=== PATIENT | female | born 1965 | race Caucasian/White ===

== ENCOUNTER 2017-02-24 15:13 | Emergency (ER) | payer MEDICAID, OTHER ==
--- NOTE | 2017-02-24 16:37 | Emergency Department Record ---
History of Present Illness - General Chief complaint: Abscess Stated complaint: OPEN SORE ON ABDOMEN Time Seen by Provider: 02/24/17 16:36 Source: Patient, RN notes reviewed Mode of Arrival: Ambulatory - History of Present Illness Initial comments: ulcer on the abd and it may have started out as an abscess and not fluctuat. primary is Dr. Nath Onset/Timin -: Week(s) Hx Tetanus Toxoid Vaccination: No Consistency: Constant Improves with: None Worsens with: None Context: None Associated symptoms: Denies other symptoms Treatments Prior to Arrival: None - Related Data Home Medications Medication Instructions Recorded Confirmed Last Taken Aclidinium [place] [Tudorza 400 mcg IH DAILY 02/24/17 02/24/17 Unknown Pressair] Aspirin [Ecotrin] 81 mg PO DAILY 02/24/17 02/24/17 Unknown Budesonide/Formoterol Fumarate 10.2 gm IH DAILY 02/24/17 02/24/17 Unknown [Symbicort 160-4.5 Mcg Inhaler] Empagliflozin/Metformin HCl 1 each PO DAILY 02/24/17 02/24/17 Unknown [Synjardy 5-1,000 mg Tablet] Previous Rx's Medication Instructions Recorded Cephalexin [Keflex] 500 mg PO QID #40 cap 02/24/17 Sulfamethoxazole/Trimethoprim 1 each PO BID #20 tablet 02/24/17 [Bactrim 400-80 mg Tablet] Allergies Allergy/AdvReac Type Severity Reaction Status Date / Time codeine Allergy DIFFICULTY Verified 02/19/16 15:17 BREATHING Travel Screening - Travel/Exposure Within Last 30 Days Have you traveled within the last 30 days?: No Review of Systems Reviewed: No additional complaints except as noted below Constitutional: Reports: As per HPI. Denies: Chills, Fever, Malaise, Night sweats, Weakness, Weight change Eyes: Reports: As per HPI. Denies: Eye discharge, Eye pain, Photophobia, Vision change ENT: Reports: As per HPI. Denies: Congestion, Dental pain, Ear pain, Epistaxis , Hearing loss, Throat pain Respiratory: Reports: As per HPI. Denies: Cough, Dyspnea, Hemoptysis, Stridor, Wheezes Cardiovascular: Reports: As per HPI. Denies: Arrhythmia, Chest pain, Dyspnea on exertion, Edema, Murmurs, Orthopnea, Palpitations, Paroxysmal nocturnal dyspnea, Rheumatic Fever, Syncope Endocrine: Reports: As per HPI. Denies: Fatigue, Heat or cold intolerance, Polydipsia, Polyuria Gastrointestinal: Reports: As per HPI. Denies: Abdominal pain, Constipation, Diarrhea, Hematemesis, Hematochezia, Melena, Nausea, Vomiting Genitourinary: Reports: As per HPI. Denies: Abnormal menses, Discharge, Dyspareunia, Dysuria, Frequency, Hematuria, Incontinence, Retention, Urgency Musculoskeletal: Reports: As per HPI. Denies: Arthralgia, Back pain, Gout, Joint swelling, Myalgia, Neck pain Skin: Reports: As per HPI. Denies: Bruising, Change in color, Change in hair/ nails, Lesions, Pruritus, Rash Neurological: Reports: As per HPI. Denies: Abnormal gait, Confusion, Headache, Numbness, Paresthesias, Seizure, Tingling, Tremors, Vertigo, Weakness Psychiatric: Reports: As per HPI. Denies: Anxiety, Auditory hallucinations, Depression, Homicidal thoughts, Suicidal thoughts, Visual hallucinations Hematological/Lymphatic: Reports: As per HPI. Denies: Anemia, Blood Clots, Easy bleeding, Easy bruising, Swollen glands Past Medical History - SOCIAL HISTORY Smoking Status: Current every day smoker - RESPIRATORY Hx Respiratory Disorders: Yes Hx Asthma: Yes Hx COPD: Yes Hx Sleep Apnea: Yes Hx of CPAP: Yes (does not use all the time) Comment:: Has a spot on her lung, has not grown in 6 weeks - CARDIOVASCULAR Hx Cardio Disorders: Yes Hx Cardiac Cath: Yes Hx Hypertension: Yes Comment:: d/t breathing - NEURO Hx Neuro Disorders: Yes Hx Dizziness: Yes Hx TIA: Yes (2012) - GI Hx GI Disorders: Yes Hx Reflux: Yes Hx Nausea/Vomiting: Yes Hx Wt Loss/Wt Gain: Yes (6 #'s in one month) - Hx Genitourinary Disorders: No Comment:: stress incontience - ENDOCRINE Hx Endocrine Disorders: Yes Hx Diabetes: Yes - MUSCULOSKELETAL Hx Musculoskeletal Disorders: Yes Hx Arthritis: Yes (legs and back) - PSYCH Hx Psych Problems: Yes Hx Anxiety: Yes Hx Depression: Yes (bipolar) Comment:: ADHD - HEMATOLOGY/ONCOLOGY Hx Hematology/Oncology Disorders: Yes Family Medical History Any Significant Family History?: Yes Hx Cancer: Mother *Cancer Comment: BREAST Hx Depression: Mother Hx Diabetes: Mother Hx Heart Disease: Father Hx Resp Disorders: Mother Physical Exam - General General Appearance: Alert, Oriented x3, Cooperative, No acute distress - Head Head exam: Normal inspection - Eye Eye exam: Normal appearance, PERRL Pupils: Normal accommodation - ENT ENT exam: Normal exam, Mucous membranes moist, Normal external ear exam, Normal orophraynx, TM's normal bilaterally Ear exam: Normal external inspection. negative: External canal tenderness Nasal Exam: Normal inspection. negative: Discharge, Sinus tenderness Mouth exam: Normal external inspection, Tongue normal Teeth exam: Normal inspection. negative: Dental caries Throat exam: Normal inspection. negative: Tonsillar erythema, Tonsillar exudate - Neck Neck exam: Normal inspection, Full ROM. negative: Tenderness - Respiratory Respiratory exam: Normal lung sounds bilaterally. negative: Respiratory distress - Cardiovascular Cardiovascular Exam: Regular rate, Normal rhythm, Normal heart sounds - GI/Abdominal GI/Abdominal exam: Soft, Normal bowel sounds. negative: Tenderness - Rectal Rectal exam: Deferred - exam: Deferred - Extremities Extremities exam: Normal inspection, Full ROM, Normal capillary refill. negative: Tenderness - Back Back exam: Reports: Normal inspection, Full ROM. Denies: Muscle spasm, Rash noted, Tenderness - Neurological Neurological exam: Alert, Normal gait, Oriented X3, Reflexes normal - Psychiatric Psychiatric exam: Normal affect, Normal mood - Skin Skin exam: Other (ulcer in the right lower quad of abd about 2 inches by one inch ) Course Vital Signs 02/24/17 16:21 Temperature 99.3 F Pulse Rate 84 Respiratory 20 Rate Blood Pressure 132/99 Pulse Ox 95 Disposition Clinical Impression: Cellulitis Ulcer of skin Qualifiers: Non-pressure ulcer stage: limited to breakdown of skin Qualified Code(s): L98.491 - Non-pressure chronic ulcer of skin of other sites limited to breakdown of skin Disposition: Home, Self-Care Condition: (1) Good Instructions: Cellulitis (ED) Additional Instructions: follow up with Dr. Nath and may need biopsy and surgical remove wash twice a day bactrim DS one BID and keflex 500 mg four times a day Prescriptions: Cephalexin [Keflex] 500 mg PO QID #40 cap Sulfamethoxazole/Trimethoprim [Bactrim 400-80 mg Tablet] 1 each PO BID #20 tablet Forms: Patient Portal Access Time of Disposition: 17:39 Quality - Quality Measures Quality Measures: N/A - Blood Pressure Screening Does Patient Have Any of the Following: No Blood Pressure Classification: Hypertensive Reading Systolic Measurement: 132 Diastolic Measurement: 99 Screening for High Blood Pressure: < First Hypertensive BP, F/U Documented > [ [id number]] First Hypertensive Follow-up Interventions: Referral to alternative/primary care provider.
[2017-02-24] MEDS ORDERED: TMP/SMZ 160MG/800MG TAB PO ONE (17:42)
[2017-02-24] MEDS ORDERED: CEPHALEXIN 500 MG CAPSULE PO STA (17:42)
== END 2017-02-24 17:56 | disposition home or self-care (01) ==
LOC: ER 15:13
DX: S86.911A Strain of unspecified muscle(s) and tendon(s) at lower leg level, right leg, initial encounter (principal); W50.2XXA Accidental twist by another person, initial encounter; Y93.19 Activity, other involving water and watercraft; Y92.828 Other wilderness area as the place of occurrence of the external cause
CPT/HCPCS: 29505; 99283 ×2; J3490

== ENCOUNTER 2017-10-25 17:25 | Emergency (ER) | payer OTHER ==
[2017-10-25] MEDS ORDERED: METHYLPREDNISOLONE PF 125MG/VIAL IVP ONE (17:50)
[2017-10-25] MEDS ORDERED: ALBUTEROL SULFATE (0.083%) 2.5 MG/3 ML NEB INH ONE (17:50)
[2017-10-25] MEDS ORDERED: IPRATROPIUM/ALBUTEROL (0.5MG/3MG) NEB INH ONE (17:50)
[2017-10-25 18:05] LABS: HEMATOCRIT 39.7 % (35.0-47.0); HEMOGLOBIN 12.9 gm/dl (11.6-16.0); MEAN CELL VOLUME 86.3 fl (81-97); MEAN CORPUSCULAR HGB CONC 32.5 g/dl (32-36); MEAN PLATELET VOLUME 9.6 fl (7.4-10.4); PLATELET COUNT 443 K/uL (130-400); WHITE BLOOD COUNT W/O DIFF 18.4 K/uL (4.2-12.2)
[2017-10-25 18:08] LABS: ARTERIAL BLD GAS O2 SATURATION 95.9 % (95-98); ARTERIAL BLOOD GAS BASE EXCESS 2.7 mmol/L (-2 - 3); ARTERIAL BLOOD GAS PCO2 42.2 mmHg (35-48); ARTERIAL BLOOD GAS pH 7.42 (7.35-7.45); CARBOXYHEMOGLOBIN 3.4 % (0-1.5); METHEMOGLOBIN 0.4 % (0.0-1.5); O2 HEMOGLOBIN 92.3 % vol (94-99); TOTAL HEMOGLOBIN 11.8 g/dl (11.6-16)
[2017-10-25 18:09] LABS: ALLEN TEST PASS
[2017-10-25 18:20] LABS: BLOOD UREA NITROGEN 14 mg/dL (6-20); CREATININE 0.7 mg/dL (0.5-0.9); EST GLOMERULAR FILTRATION RATE > 60 mL/min
[2017-10-25 18:23] LABS: GLUCOSE,RANDOM 168 mg/dL (74-109)
--- NOTE | 2017-10-25 18:33 | Emergency Department Record ---
History of Present Illness - General Chief Complaint: Difficulty Breathing Stated Complaint: SHORTNESS OF BREATH Time Seen by Provider: 10/25/17 17:44 Source: Patient Mode of Arrival: Ambulatory Limitations: No limitations - History of Present Illness Initial Comments: pt c/o of sob that has been getting worse over the last few days. she has a hx of copd for 9 yrs. she still smokes. she has a prod white cough. she has inhalers that she has been using. she saw her primary earlier this week and was started on abx. he told her that the cxr showed that her "lungs are a mess " MD Complaint: Shortness of breath Onset/Timin Severity: Moderate Severity scale (1-10): 8 Quality: Aching Improves With: Nothing Worsens With: Lying flat Known History Of: Asthma, COPD Context: Recent illness Associated Symptoms: Sputum production Treatments Prior to Arrival: Bronchodilator - Related Data Home Medications Medication Instructions Recorded Confirmed Last Taken Metformin HCl [Metformin HCl ER] 1,000 mg PO DAILY 10/25/17 10/25/17 1 Day Ago ~10/24/17 Allergies Allergy/AdvReac Type Severity Reaction Status Date / Time acetaminophen [From Percocet] Allergy CHEST PAIN Verified 10/25/17 17:52 codeine Allergy DIFFICULTY Verified 10/25/17 17:52 BREATHING oxycodone [From Percocet] Allergy CHEST PAIN Verified 10/25/17 17:52 Travel Screening - Travel/Exposure Within Last 30 Days Have you traveled within the last 30 days?: No - Travel/Exposure Within Last Year Have you traveled outside the [place] in the last year?: No - Additonal Travel Details Have you been exposed to anyone with a communicable illness?: No - Travel Symptoms Symptom Screening: None Review of Systems Reviewed: No additional complaints except as noted below Constitutional: Reports: As per HPI. Denies: Chills, Fever, Malaise, Night sweats, Weakness, Weight change Eyes: Reports: As per HPI. Denies: Eye discharge, Eye pain, Photophobia, Vision change ENT: Reports: As per HPI. Denies: Congestion, Dental pain, Ear pain, Epistaxis , Hearing loss, Throat pain Respiratory: Reports: As per HPI. Denies: Cough, Dyspnea, Hemoptysis, Stridor, Wheezes Cardiovascular: Reports: As per HPI. Denies: Arrhythmia, Chest pain, Dyspnea on exertion, Edema, Murmurs, Orthopnea, Palpitations, Paroxysmal nocturnal dyspnea, Rheumatic Fever, Syncope Endocrine: Reports: As per HPI. Denies: Fatigue, Heat or cold intolerance, Polydipsia, Polyuria Gastrointestinal: Reports: As per HPI. Denies: Abdominal pain, Constipation, Diarrhea, Hematemesis, Hematochezia, Melena, Nausea, Vomiting Genitourinary: Reports: As per HPI. Denies: Abnormal menses, Discharge, Dyspareunia, Dysuria, Frequency, Hematuria, Incontinence, Retention, Urgency Musculoskeletal: Reports: As per HPI. Denies: Arthralgia, Back pain, Gout, Joint swelling, Myalgia, Neck pain Skin: Reports: As per HPI. Denies: Bruising, Change in color, Change in hair/ nails, Lesions, Pruritus, Rash Neurological: Reports: As per HPI. Denies: Abnormal gait, Confusion, Headache, Numbness, Paresthesias, Seizure, Tingling, Tremors, Vertigo, Weakness Psychiatric: Reports: As per HPI. Denies: Anxiety, Auditory hallucinations, Depression, Homicidal thoughts, Suicidal thoughts, Visual hallucinations Hematological/Lymphatic: Reports: As per HPI. Denies: Anemia, Blood Clots, Easy bleeding, Easy bruising, Swollen glands Past Medical History - SOCIAL HISTORY Smoking Status: Current every day smoker Alcohol Use: None Drug Use: Rare, Occasional Drug Use Detail:: Marijuana - RESPIRATORY Hx Respiratory Disorders: Yes Hx Asthma: Yes Hx COPD: Yes Hx Sleep Apnea: Yes Hx of CPAP: Yes (does not use all the time) Comment:: Has a spot on her lung, has not grown in 6 weeks - CARDIOVASCULAR Hx Cardio Disorders: Yes Hx Cardiac Cath: Yes Hx Hypertension: Yes Comment:: d/t breathing - NEURO Hx Neuro Disorders: Yes Hx Dizziness: Yes Hx TIA: Yes (2012) - GI Hx GI Disorders: Yes Hx Reflux: Yes Hx Nausea/Vomiting: Yes Hx Wt Loss/Wt Gain: Yes (6 #'s in one month) - Hx Genitourinary Disorders: No Comment:: stress incontience - ENDOCRINE Hx Endocrine Disorders: Yes Hx Diabetes: Yes - MUSCULOSKELETAL Hx Musculoskeletal Disorders: Yes Hx Arthritis: Yes (legs and back) - PSYCH Hx Psych Problems: Yes Hx Anxiety: Yes Hx Depression: Yes (bipolar) Comment:: ADHD - HEMATOLOGY/ONCOLOGY Hx Hematology/Oncology Disorders: Yes Family Medical History Any Significant Family History?: Yes Hx Cancer: Mother *Cancer Comment: BREAST Hx Depression: Mother Hx Diabetes: Mother Hx Heart Disease: Father Hx Resp Disorders: Mother Physical Exam - General General Appearance: Alert, Oriented x3, Cooperative, Severe distress - Head Head exam: Normal inspection - Eye Eye exam: Normal appearance, PERRL, EOMI Pupils: Normal accommodation - ENT ENT exam: Normal exam, Mucous membranes moist, Normal external ear exam, Normal orophraynx Ear exam: Normal external inspection. negative: External canal tenderness Nasal Exam: Normal inspection. negative: Discharge, Sinus tenderness Mouth exam: Normal external inspection, Tongue normal Teeth exam: Normal inspection. negative: Dental caries Throat exam: Normal inspection. negative: Tonsillar erythema, Tonsillar exudate - Neck Neck exam: Normal inspection, Full ROM. negative: Tenderness - Respiratory Respiratory exam: Accessory muscle use, Decreased breath sounds, Rales, Respiratory distress, Rhonchi, Wheezes - Cardiovascular Cardiovascular Exam: Regular rate, Normal rhythm, Normal heart sounds - GI/Abdominal GI/Abdominal exam: Soft, Normal bowel sounds. negative: Tenderness - Rectal Rectal exam: Deferred - exam: Deferred - Extremities Extremities exam: Normal inspection, Full ROM, Normal capillary refill. negative: Tenderness - Back Back exam: Reports: Normal inspection, Full ROM. Denies: Muscle spasm, Rash noted, Tenderness - Neurological Neurological exam: Alert, CN II-XII intact, Normal gait, Oriented X3 - Psychiatric Psychiatric exam: Normal affect, Normal mood - Skin Skin exam: Dry, Intact, Normal color, Warm Course Vital Signs 10/25/17 10/25/17 10/25/17 17:38 17:45 18:05 Temperature 98.6 F Pulse Rate 98 H 93 H 98 H Pulse Rate [ 88 Gsa Coordinator ] Respiratory 22 28 H 28 H Rate Blood Pressure 149/79 Blood Pressure [Right Arm] Pulse Ox 58 L 89 L 90 L 10/25/17 18:15 Temperature Pulse Rate Pulse Rate [ 86 Gsa Coordinator ] Respiratory 24 Rate Blood Pressure Blood Pressure 114/80 [Right Arm] Pulse Ox 91 L - Reevaluation(s) Reevaluation #1: 10/25/17 19:44 pt is doing better and has more air moving. her sats are in low 90s on 4ltrs Medical Decision Making - Lab Data Result diagrams: 10/25/17 18:02 10/25/17 18:02 Lab Results 10/25/17 10/25/17 10/25/17 Range/Units 18:02 18:02 18:02 WBC 18.4 H (4.2-12.2) K/uL RBC 4.60 (3.80-5.40) M/uL Hgb 12.9 (11.6-16.0) gm/dl Hct 39.7 (35.0-47.0) % MCV 86.3 (81-97) fl MCH 28.0 (27-33) pg MCHC 32.5 (32-36) g/dl RDW 18.0 H (11.5-14.5) % Plt Count 443 H (130-400) K/uL MPV 9.6 (7.4-10.4) fl Neutrophils % 78.0 (47-80) % Band Neutrophils % 0.0 (0-5) % Eosinophils % Not Reportable Basophils % Not Reportable Lymphocytes 17.0 (16-45) % Monocytes 5.0 (0-9) % Basophils 0.0 (0-6) % Eosinophil Count 0.0 (0-6) % D-Dimer 0.90 H (0-0.59) mg/L FEU Puncture Site Right wrist pCO2 42.2 (35-48) mmHg pO2 77.0 L (83-108) mmHg HCO3 27.0 H (18-23) mmol/L Oxyhemoglobin 92.3 L (94-99) % vol ABG pH 7.42 (7.35-7.45) ABG O2 Saturation 95.9 (95-98) % ABG Base Excess 2.7 (-2 - 3) mmol/L Ruddy Test Pass Carboxyhemoglobin 3.4 H (0-1.5) % Methemoglobin 0.4 (0.0-1.5) % Total Hemoglobin 11.8 (11.6-16) g/dl Actual Respiration Rate 28.0 H (10-18) /MIN FiO2 10.0 L (21-21) % Sodium (136-145) mmol/L Potassium (3.4-4.5) mmol/L Chloride (98-107) mmol/L Carbon Dioxide (22-29) mmol/L Anion Gap (7-16) BUN (6-20) mg/dL Creatinine (0.5-0.9) mg/dL Estimated GFR mL/min Random Glucose (74-109) mg/dL Calcium (8.6-10.0) mg/dL 10/25/17 Range/Units 18:02 WBC (4.2-12.2) K/uL RBC (3.80-5.40) M/uL Hgb (11.6-16.0) gm/dl Hct (35.0-47.0) % MCV (81-97) fl MCH (27-33) pg MCHC (32-36) g/dl RDW (11.5-14.5) % Plt Count (130-400) K/uL MPV (7.4-10.4) fl Neutrophils % (47-80) % Band Neutrophils % (0-5) % Eosinophils % Basophils % Lymphocytes (16-45) % Monocytes (0-9) % Basophils (0-6) % Eosinophil Count (0-6) % D-Dimer (0-0.59) mg/L FEU Puncture Site pCO2 (35-48) mmHg pO2 (83-108) mmHg HCO3 (18-23) mmol/L Oxyhemoglobin (94-99) % vol ABG pH (7.35-7.45) ABG O2 Saturation (95-98) % ABG Base Excess (-2 - 3) mmol/L Ruddy Test Carboxyhemoglobin (0-1.5) % Methemoglobin (0.0-1.5) % Total Hemoglobin (11.6-16) g/dl Actual Respiration Rate (10-18) /MIN FiO2 (21-21) % Sodium 141 (136-145) mmol/L Potassium 3.6 (3.4-4.5) mmol/L Chloride 96 L (98-107) mmol/L Carbon Dioxide 28.0 (22-29) mmol/L Anion Gap 17.0 H (7-16) BUN 14 (6-20) mg/dL Creatinine 0.7 (0.5-0.9) mg/dL Estimated GFR > 60 mL/min Random Glucose 168 H (74-109) mg/dL Calcium 9.0 (8.6-10.0) mg/dL Disposition Disposition: Transfer Clinical Impression: Hypoxia Pneumonia Qualifiers: Pneumonia type: due to unspecified organism Laterality: bilateral Lung location : unspecified part of lung Qualified Code(s): J18.9 - Pneumonia, unspecified organism COPD (chronic obstructive pulmonary disease) Qualifiers: COPD type: unspecified COPD Qualified Code(s): J44.9 - Chronic obstructive pulmonary disease, unspecified Disposition: Acute Care Hospital Transfer Transfer To: [facility] Reason For Transfer: needs higher level of care and pulmnologist Accepting Physician: dr currie Time Discussed w/Accepting Physician: 19:46 Condition: (1) Good Forms: Patient Portal Access Quality - Quality Measures Quality Measures: N/A - Blood Pressure Screening Does Patient Have Any of the Following: Active Dx of HTN Blood Pressure Classification: Hypertensive Reading Systolic Measurement: 149 Diastolic Measurement: 79 Screening for High Blood Pressure: Patient Exclusion, Hx of HTN [G9744]
[2017-10-25] MEDS ORDERED: CEFTRIAXONE SODIUM 1 GM in 0.9 % SODIUM CHLORIDE 100ML 100 ML IVPB ONE (18:39)
--- NOTE | 2017-10-26 12:34 | RADIOLOGY REPORT ---
DATE: 10/25/2017. EXAM: CHEST, TWO VIEWS. HISTORY: Dyspnea and hypoxia. COMPARISON: 10/22/2017. TECHNIQUE: Two views of the chest were obtained. FINDINGS: Telemetry leads overlie the chest. Cardiomediastinal silhouette is enlarged though stable. Interval increased patchy airspace disease throughout the lungs with mass-like airspace disease in the right perihilar region. No conclusive pleural effusion. IMPRESSION: 1. INTERVAL INCREASED PATCHY AIRSPACE DISEASE THROUGHOUT THE LUNGS WITH MASS- LIKE AIRSPACE DISEASE IN THE RIGHT PERIHILAR REGION. RECOMMEND FOLLOW-UP RADIOGRAPH AFTER AN APPROPRIATE CLINICAL INTERVAL TO EXCLUDE OTHER PROCESSES INCLUDING MASS. 2. STABLE CARDIOMEGALY. JOB NUMBER: [id number] MTDD
--- NOTE | 2017-10-26 12:56 | CT ANGIOGRAM REPORT ---
DATE: 10/25/2017. EXAM: CT ANGIOGRAM OF THE CHEST. HISTORY: Dyspnea. Elevated white blood cells. Elevated D-dimer. COMPARISON: 12/24/2015. TECHNIQUE: Routine CT angiography images of the chest obtained following intravenous administration of contrast. The amount and type of contrast can be found in the medical record. The 3D/MIP images were obtained for further assessment. FINDINGS: The heart is not enlarged. No pericardial effusion. The aorta enhances normally with contrast. No central filling defects in the pulmonary arteries to suggest acute pulmonary embolus. No mediastinal lymph node enlargement. Enlarged right hilar lymph node measuring approximately 3.3 x 2.1 cm. Lung parenchyma demonstrates ground glass opacities throughout all lobes which could relate to infectious infiltrate edema or hemorrhage. Somewhat more dense airspace disease is also interspersed elsewhere. No pleural effusion. The visualized upper abdomen demonstrates hepatic steatosis. Hepatomegaly. No acute osseous abnormality. IMPRESSION: 1. NO PULMONARY EMBOLUS. 2. GROUND GLASS AIRSPACE DISEASE THROUGHOUT ALL LOBES OF THE LUNG WHICH COULD RELATE TO INFECTIOUS INFILTRATES, EDEMA, OR HEMORRHAGE. 3. ENLARGED RIGHT HILAR LYMPH NODE MEASURING 3.3 X 2.1 CM. THIS COULD RELATE TO REACTIVE CHANGES, THOUGH NEOPLASM IS NOT EXCLUDED. AT A MINIMUM, FOLLOW-UP IMAGING WOULD BE RECOMMENDED AFTER AN APPROPRIATE CLINICAL INTERVAL. 4. HEPATOMEGALY AND HEPATIC STEATOSIS. JOB NUMBER: [id number] MTDD
== END 2017-10-25 20:54 | disposition short-term general hospital (02) ==
LOC: ER 17:25
DX: R09.02 Hypoxemia (principal); J18.9 Pneumonia, unspecified organism; J44.9 Chronic obstructive pulmonary disease, unspecified; D72.829 Elevated white blood cell count, unspecified; R79.89 Other specified abnormal findings of blood chemistry; E11.9 Type 2 diabetes mellitus without complications; R51 Headache; I10 Essential (primary) hypertension; F17.210 Nicotine dependence, cigarettes, uncomplicated; Z79.84 Long term (current) use of oral hypoglycemic drugs
CPT/HCPCS: 99285 ×2; 96365; 96366; 96375; 82375; 80048; 82803; 84484; 85379; 85027; 83880; 71045; 71275; 94640; 36600; 93005; 93010; Q9967; J2930; J7613

== ENCOUNTER 2018-08-02 16:04 | Emergency (ER) | payer OTHER ==
--- NOTE | 2018-08-02 17:04 | Emergency Department Record ---
History of Present Illness - General Chief complaint: Abscess Stated complaint: SORE UNDER L ARM PIT Time Seen by Provider: 08/02/18 16:32 Source: Patient, RN notes reviewed Mode of Arrival: Ambulatory - History of Present Illness Initial comments: left axillary infection which has been present for couple months and much worse in the last 3 days. MD complaint: Abscess/boil Onset/Timin -: Month(s) Hx Tetanus Toxoid Vaccination: No Location: LUE Severity: Moderate Severity scale (1-10): 8 Quality: Other Consistency: Constant Improves with: None Worsens with: None Associated symptoms: Denies other symptoms Treatments Prior to Arrival: None - Related Data Home Medications Medication Instructions Recorded Confirmed Last Taken Cariprazine HCl [Vraylar] 3 mg PO DAILY 08/02/18 08/02/18 08/02/18 Omeprazole [Prilosec] 20 mg PO DAILY 08/02/18 08/02/18 08/02/18 Previous Rx's Medication Instructions Recorded Cephalexin [Keflex] 500 mg PO QID #40 cap 08/02/18 Sulfamethoxazole/Trimethoprim 1 each PO BID #20 tablet 08/02/18 [Bactrim Ds Tablet] Allergies Allergy/AdvReac Type Severity Reaction Status Date / Time codeine Allergy DIFFICULTY Verified 08/02/18 16:09 BREATHING Travel Screening - Travel/Exposure Within Last 30 Days Have you traveled within the last 30 days?: No - Travel/Exposure Within Last Year Have you traveled outside the [place] in the last year?: No - Additonal Travel Details Have you been exposed to anyone with a communicable illness?: No - Travel Symptoms Symptom Screening: None Review of Systems Reviewed: No additional complaints except as noted below Constitutional: Reports: As per HPI. Denies: Chills, Fever, Malaise, Night sweats, Weakness, Weight change Eyes: Reports: As per HPI. Denies: Eye discharge, Eye pain, Photophobia, Vision change ENT: Reports: As per HPI. Denies: Congestion, Dental pain, Ear pain, Epistaxis , Hearing loss, Throat pain Respiratory: Reports: As per HPI. Denies: Cough, Dyspnea, Hemoptysis, Stridor, Wheezes Cardiovascular: Reports: As per HPI. Denies: Arrhythmia, Chest pain, Dyspnea on exertion, Edema, Murmurs, Orthopnea, Palpitations, Paroxysmal nocturnal dyspnea, Rheumatic Fever, Syncope Endocrine: Reports: As per HPI. Denies: Fatigue, Heat or cold intolerance, Polydipsia, Polyuria Gastrointestinal: Reports: As per HPI. Denies: Abdominal pain, Constipation, Diarrhea, Hematemesis, Hematochezia, Melena, Nausea, Vomiting Genitourinary: Reports: As per HPI. Denies: Abnormal menses, Discharge, Dyspareunia, Dysuria, Frequency, Hematuria, Incontinence, Retention, Urgency Musculoskeletal: Reports: As per HPI. Denies: Arthralgia, Back pain, Gout, Joint swelling, Myalgia, Neck pain Skin: Reports: As per HPI. Denies: Bruising, Change in color, Change in hair/ nails, Lesions, Pruritus, Rash Neurological: Reports: As per HPI. Denies: Abnormal gait, Confusion, Headache, Numbness, Paresthesias, Seizure, Tingling, Tremors, Vertigo, Weakness Psychiatric: Reports: As per HPI. Denies: Anxiety, Auditory hallucinations, Depression, Homicidal thoughts, Suicidal thoughts, Visual hallucinations Hematological/Lymphatic: Reports: As per HPI. Denies: Anemia, Blood Clots, Easy bleeding, Easy bruising, Swollen glands Past Medical History - SOCIAL HISTORY Smoking Status: Current every day smoker Alcohol Use: None Drug Use: None - RESPIRATORY Hx Respiratory Disorders: Yes Hx Asthma: Yes Hx COPD: Yes Hx Sleep Apnea: Yes Hx of CPAP: Yes (does not use all the time) Comment:: Has a spot on her lung, has not grown in 6 weeks - CARDIOVASCULAR Hx Cardio Disorders: Yes Hx Cardiac Cath: Yes Hx Hypertension: Yes Comment:: d/t breathing - NEURO Hx Neuro Disorders: Yes Hx Dizziness: Yes Hx TIA: Yes (2012) - GI Hx GI Disorders: Yes Hx Reflux: Yes Hx Nausea/Vomiting: Yes Hx Wt Loss/Wt Gain: Yes (6 #'s in one month) - Hx Genitourinary Disorders: No Comment:: stress incontience - ENDOCRINE Hx Endocrine Disorders: Yes Hx Diabetes: Yes - MUSCULOSKELETAL Hx Musculoskeletal Disorders: Yes Hx Arthritis: Yes (legs and back) - PSYCH Hx Psych Problems: Yes Hx Anxiety: Yes Hx Depression: Yes (bipolar) Comment:: ADHD - HEMATOLOGY/ONCOLOGY Hx Hematology/Oncology Disorders: Yes Family Medical History Any Significant Family History?: Yes Hx Cancer: Mother *Cancer Comment: BREAST Hx Depression: Mother Hx Diabetes: Mother Hx Heart Disease: Father Hx Resp Disorders: Mother Physical Exam - General General Appearance: Alert, Oriented x3, Cooperative, No acute distress - Head Head exam: Normal inspection - Eye Eye exam: Normal appearance, PERRL Pupils: Normal accommodation - ENT ENT exam: Normal exam, Mucous membranes moist, Normal external ear exam, Normal orophraynx, TM's normal bilaterally Ear exam: Normal external inspection. negative: External canal tenderness Nasal Exam: Normal inspection. negative: Discharge, Sinus tenderness Mouth exam: Normal external inspection, Tongue normal Teeth exam: Normal inspection. negative: Dental caries Throat exam: Normal inspection. negative: Tonsillar erythema, Tonsillar exudate - Neck Neck exam: Normal inspection, Full ROM. negative: Tenderness - Respiratory Respiratory exam: Normal lung sounds bilaterally. negative: Respiratory distress - Cardiovascular Cardiovascular Exam: Regular rate, Normal rhythm, Normal heart sounds - GI/Abdominal GI/Abdominal exam: Soft, Normal bowel sounds. negative: Tenderness - Rectal Rectal exam: Deferred - exam: Deferred - Extremities Extremities exam: Normal inspection, Full ROM, Normal capillary refill. negative: Tenderness - Back Back exam: Reports: Normal inspection, Full ROM. Denies: Muscle spasm, Rash noted, Tenderness - Neurological Neurological exam: Alert, Normal gait, Oriented X3, Reflexes normal - Psychiatric Psychiatric exam: Normal affect, Normal mood - Skin Skin exam: Dry, Intact, Normal color, Warm Course Vital Signs 08/02/18 16:13 Temperature 97.9 F Pulse Rate 90 Respiratory 20 Rate Blood Pressure 152/86 Pulse Ox 95 - Reevaluation(s) Reevaluation #1: 08/02/18 17:05 needle aspiration of the axillary area and culture sent to lab 08/02/18 17:06 08/02/18 17:28 12 ml of purulent material aspirated from the left axilla Disposition Clinical Impression: Hidradenitis suppurativa of left axilla Disposition: Home, Self-Care Condition: (1) Good Instructions: Abscess (ED) Additional Instructions: warm compresses three times a day Prescriptions: Cephalexin [Keflex] 500 mg PO QID #40 cap Sulfamethoxazole/Trimethoprim [Bactrim Ds Tablet] 1 each PO BID #20 tablet Time of Disposition: 17:07 Quality - Quality Measures Quality Measures: N/A - Blood Pressure Screening Does Patient Have Any of the Following: No Blood Pressure Classification: Pre-Hypertensive BP Reading Systolic Measurement: 152 Diastolic Measurement: 86 Screening for High Blood Pressure: < Pre-Hypertensive BP, F/U Documented > [ [id number]] Pre-Hypertensive Follow-up Interventions: Referral to alternative/primary care provider.
[2018-08-02] MEDS ORDERED: TMP/SMZ 160MG/800MG TAB PO ONE (17:26)
[2018-08-02] MEDS ORDERED: CEPHALEXIN 500 MG CAPSULE PO STA (17:26)
== END 2018-08-02 17:49 | disposition home or self-care (01) ==
LOC: ER 16:04
DX: L73.2 Hidradenitis suppurativa (principal); J44.9 Chronic obstructive pulmonary disease, unspecified; I10 Essential (primary) hypertension; F17.210 Nicotine dependence, cigarettes, uncomplicated
CPT/HCPCS: 10160 ×2; 99283; 99284; J3490